=== PATIENT | female | born 1955 | race Caucasian/White ===

== ENCOUNTER → 2016-07-07 | Outpatient (CLI) | payer OTHER ==
--- NOTE | 2016-07-07 14:26 | MA ---
Screening Digital Mammogram with Digital Breast Tomosynthesis Clinical Indications: Routine screening. Previous history of breast cancer on the right. The patient has had 2 lumpectomies and radiation treatment on the right. Technique: Standard cephalocaudal projections are obtained. Digital breast tomosynthesis was perform ed in the MLO projection with reconstruction at 1.0 mm slice thickness and composite MLO views recons tructed. This examination is processed by the CAD computer aided detection system. Comparison: October 09, 2015; June 16, 2015; December 16, 2014; and studies dating back to February. Breast density: C; The breasts are heterogeneously dense, which may obscure small masses. Findings: CAD was reviewed. There are no new masses, new clusters of microcalcifications, or significant axillary lymphadenopathy . There is architectural distortion lateral right breast from previous lumpectomy. Impression: Benign findings. BI-RADS 2. Recommendation: Routine screening mammogram is recommended in one year. Dense mammographic pattern limits the sensitivity of mammography in this patient. If there is a clini adry palpable abnormality, recommend additional imaging with ultrasound if clinically indicated. [facility] will send a result letter to the patient. Negative mammography should not preclude additional workup of a clinically suspicious finding. The patient's information is entered into a reminder system with a target due date for her next mammo gram.
== END ==
LOC: FIMAGING 13:41
DX: Z12.31 Encounter for screening mammogram for malignant neoplasm of breast (principal); Z85.3 Personal history of malignant neoplasm of breast
CPT/HCPCS: G0202

== ENCOUNTER → 2017-06-07 | Outpatient (CLI) | payer OTHER | LOC: FIMAGING 14:56 | PROVIDERS: ATTEND Internal Medicine Hematology & Oncology | DX: N63.10 Unspecified lump in the right breast, unspecified quadrant (principal); Z85.3 Personal history of malignant neoplasm of breast | CPT/HCPCS: G0206 ==

== ENCOUNTER → 2017-08-14 | Outpatient (CLI) | payer OTHER | LOC: FIMAGING 08:10 | PROVIDERS: ATTEND Internal Medicine Hematology & Oncology | DX: Z12.31 Encounter for screening mammogram for malignant neoplasm of breast (principal); Z85.3 Personal history of malignant neoplasm of breast ==

== ENCOUNTER → 2017-08-25 | Outpatient (CLI) | payer OTHER | LOC: FIMAGING 09:39 | PROVIDERS: ATTEND Internal Medicine Hematology & Oncology | DX: R92.8 Other abnormal and inconclusive findings on diagnostic imaging of breast (principal) ==

== ENCOUNTER → 2017-10-13 | Outpatient (CLI) | payer OTHER | LOC: BMCIMAGING 09:13 | PROVIDERS: ATTEND Family Medicine Sports Medicine | DX: M81.0 Age-related osteoporosis without current pathological fracture (principal); Z78.0 Asymptomatic menopausal state; Z85.3 Personal history of malignant neoplasm of breast ==

== ENCOUNTER → 2018-06-20 | Outpatient (CLI) | payer OTHER | LOC: FIMAGING 14:19 | PROVIDERS: ATTEND Internal Medicine Hematology & Oncology | DX: R92.8 Other abnormal and inconclusive findings on diagnostic imaging of breast (principal); Z85.3 Personal history of malignant neoplasm of breast ==

== ENCOUNTER → 2018-06-25 | Outpatient (CLI) | payer OTHER ==
[~2018-06-25] MED LIST: GADOBUTROL 10 ML VIAL IVP ONE
== END ==
LOC: FIMAGING 09:29
PROVIDERS: ATTEND Internal Medicine Hematology & Oncology
DX: N63.13 Unspecified lump in the right breast, lower outer quadrant (principal); Z85.3 Personal history of malignant neoplasm of breast
CPT/HCPCS: A9585; C8908

== ENCOUNTER 2018-07-19 07:51 | Outpatient (CLI) | payer OTHER ==
[2018-07-19] MEDS ORDERED: GADOBUTROL 10 ML VIAL IVP ONE (09:02)
[2018-07-19] MEDS ORDERED: MEPERIDINE 25 MG/ML SYR IVP PRN (09:06)
[2018-07-19] MEDS ORDERED: NALOXONE HCL 0.4 MG/ML INJ IVP PRN (09:06)
[2018-07-19] MEDS ORDERED: FLUMAZENIL 0.5 MG/5 ML MDV IVP PRN (09:06)
[2018-07-19] MEDS ORDERED: ONDANSETRON 4 MG/2 ML VIAL IVP ONE (09:06)
[2018-07-19] MEDS ORDERED: fentaNYL 100 MCG/2 ML INJ IVP PRN (09:06)
[2018-07-19] MEDS ORDERED: MIDAZOLAM 2 MG/2 ML VIAL IVP PRN (09:06)
[2018-07-19] MEDS ORDERED: ONDANSETRON 4 MG/2 ML VIAL ONE (09:13)
[2018-07-19] MEDS ORDERED: FLUMAZENIL 0.5 MG/5 ML MDV IVP ONE (09:14)
[2018-07-19] MEDS ORDERED: MIDAZOLAM 2 MG/2 ML VIAL ONE (09:14)
[2018-07-19] MEDS ORDERED: fentaNYL 100 MCG/2 ML INJ ONE ×2 (09:14)
[2018-07-19] MEDS ORDERED: NALOXONE HCL 0.4 MG/ML INJ ONE (09:14)
[2018-07-19] MEDS ORDERED: NS 1,000 ML IV SCH (09:15)
[2018-07-19] MEDS ORDERED: LIDOCAINE 1% 5 ML SDV ONE (09:20)
[2018-07-19] MEDS ORDERED: BUPIVACAINE 0.5% 30 ML SDV ONE (09:20)
[2018-07-19] MEDS ORDERED: NA BICARBONATE 50 MEQ/50 ML VIAL ONE (09:21)
[2018-07-19 12:28] VITALS: BP 95/59
[2018-07-19] MEDS ORDERED: ACETAMINOPHEN 325 MG TAB PO PRN (13:06)
[2018-07-19] MEDS ORDERED: ONDANSETRON 4 MG/2 ML VIAL IVP PRN (13:06)
--- NOTE | 2018-07-19 13:06 | PDPROPOC ---
Sedation Plan of Care Sedation Plan of Care: vital signs stable, mental status noted, patient educated of risks, benefits, alternatives, patient can tolerate sedation ASA Classification: ASA 1 Planned drugs: fentanyl, midazolam Mallampati Score: Class 2 Mallampati Reference Image: Patient passed 3-3-2 rule?: Yes
--- NOTE | 2018-07-19 13:06 | PDGENHP ---
History & Physical Chief Complaint: abnl breast MRI Pertinent Past, Social, Family History: prior hx right breast CA Cardiorespiratory Assessment: RRR, clear
== END 2018-07-19 12:05 | disposition home or self-care (01) ==
LOC: FIMAGING 07:51
PROVIDERS: ATTEND Internal Medicine Hematology & Oncology
PROC: 0HBT3ZX Excision of Right Breast, Percutaneous Approach, Diagnostic (ICD-10-PCS; principal; 2018-07-19)
DX: C50.211 Malignant neoplasm of upper-inner quadrant of right female breast (principal); Z17.0 Estrogen receptor positive status [ER+]
CPT/HCPCS: A9585; J2250; J2310; J2405; J3010

== ENCOUNTER 2018-09-07 06:26 | Day surgery (SDC) | payer OTHER ==
[2018-09-07] MEDS ORDERED: LORazepam 2 MG/ML INJ IVP ONE (06:50)
[2018-09-07] MEDS ORDERED: ceFAZolin 2 GM/DEXTROSE 100 ML IV ONE (06:50)
[2018-09-07] MEDS ORDERED: LR 1,000 ML IV ONE (06:51)
[2018-09-07] MEDS ORDERED: LIDOCAINE 1% 300 MG/30 ML SDV ONE ×2 (07:34→10:17)
[2018-09-07] MEDS ORDERED: CEFAZOLIN 2 GM/DEXTROSE/100 ML BAG IV ONE (10:16)
[2018-09-07] MEDS ORDERED: BUPIVACAINE 0.25% 30 ML SDV ONE (10:18)
--- NOTE | 2018-09-07 10:18 | PDHPUP ---
History & Physical Update H&P update statement: This history and physical update is based on an assessment of the patient which was completed after admission or registration (within 24 hours), but prior to the surgery/procedure. H&P update: H&P reviewed & patient examined, no change in patient's condition since H&P completed (pre-op mammo guided needle loc films reviewed with Dr. Rodriguez)
[2018-09-07] MEDS ORDERED: MIDAZOLAM 2 MG/2 ML VIAL IVP ONE (10:58)
[2018-09-07] MEDS ORDERED: ALBUTEROL 3 ML DEYVIAL IH PRN (10:59)
[2018-09-07] MEDS ORDERED: ONDANSETRON 4 MG/2 ML VIAL IVP PRN (10:59)
[2018-09-07] MEDS ORDERED: LR 500 ML IV PRN (10:59)
[2018-09-07] MEDS ORDERED: NS 500 ML IV PRN (10:59)
[2018-09-07] MEDS ORDERED: HYDROmorphONE/DILAUDID 2 MG/ML INJ IVP PRN (10:59)
[2018-09-07] MEDS ORDERED: NALOXONE HCL 0.4 MG/ML INJ IVP PRN (10:59)
[2018-09-07] MEDS ORDERED: fentaNYL 100 MCG/2 ML INJ IVP PRN (10:59)
--- NOTE | 2018-09-07 10:59 | PDANEPAE ---
ANE History of Present Illness here for exc breast biopsy ANE Past Medical History - Cardiovascular History Hx Hypertension: No Hx Arrhythmias: No Hx Chest Pain: No Hx Coronary Artery / Peripheral Vascular Disease: No Hx CHF / Valvular Disease: No Hx Palpitations: No - Pulmonary History Hx COPD: No Hx Asthma/Reactive Airway Disease: No Hx Recent Upper Respiratory Infection: No Hx Oxygen in Use at Home: No Hx Sleep Apnea: No Sleep Apnea Screening Result - Last Documented: Negative - Neurologic History Hx Cerebrovascular Accident: No Hx Seizures: No Hx Dementia: No - Endocrine History Hx Diabetes: No - Renal History Hx Renal Disorders: No - Liver History Hx Hepatic Disorders: No - Neurological & Psychiatric Hx Hx Neurological and Psychiatric Disorders: Yes Neurological / Psychiatric History Comment: mild depression - Cancer History Hx Cancer: Yes Cancer History Comment: Breast CA. 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 borderline osteopenia - Chronic Pain History Chronic Pain: No - Surgical History Prior Surgeries: 11/2017 right acl replacement. knee scopes. 2014 lumpectomy x2. . partial hysterectomy 1994. appy 1968 ANE Review of Systems Review of systems is: negative Review of Systems: - Exercise capacity Exercise capacity: >=4 METS METS (RN): 5 METS ANE Patient History - Allergies Allergies/Adverse Reactions: No Known Allergies Allergy (Verified 09/04/18 11:32) - Home Medications Home medications: home medication list seen and reviewed Home Medications: Tamoxifen Citrate 07/11/18 [Last Taken 09/06/18] Herbals/Supplements -Info Only 09/04/18 [Last Taken 09/04/18] Potassium Chloride 09/04/18 [Last Taken 09/06/18] - NPO status NPO Status: no food or drink >8 hours NPO Since - Liquids (Date): 09/07/18 NPO Since - Liquids (Time): 05:05 NPO Since - Solids (Date): 09/06/18 NPO Since - Solids (Time): 22:00 - Smoking Hx Smoking Status: Never smoked - Family Anes Hx Family Hx Anesthesia Complications: none ANE Labs/Vital Signs - Vital Signs Vital Signs: reviewed preoperatively; see RN documention for details Blood Pressure: 101/44 Heart Rate: 53 Respiratory Rate: 16 O2 Sat (%): 96 Height: 170.18 cm Weight: 63.503 kg ANE Physical Exam - Airway Neck exam: FROM Mallampati Score: Class 1 Mouth exam: normal dental/mouth exam - Pulmonary Pulmonary: no respiratory distress - Cardiovascular Cardiovascular: regular rate and rhythym - ASA Status ASA Status: II ANE Anesthesia Plan Anesthesia Plan: GA with mask
[2018-09-07] MEDS ORDERED: MIDAZOLAM 2 MG/2 ML VIAL ONE ×2 (11:01→11:03)
[2018-09-07] MEDS ORDERED: PROPOFOL/EMULSION 500 MG/50 ML BOTTLE IV ONE (11:08)
[2018-09-07] MEDS ORDERED: fentaNYL 100 MCG/2 ML INJ ONE (11:10)
[2018-09-07] MEDS ORDERED: ONDANSETRON 4 MG/2 ML VIAL ONE (11:14)
[2018-09-07] MEDS ORDERED: ePHEDrine SULFATE 25 MG/5 ML SYR ONE (11:26)
[2018-09-07] MEDS ORDERED: PHENYLEPHRINE HCL 100 MCG/ML SYR ONE (11:36)
[2018-09-07] MEDS ORDERED: AVITENE POWDER 1 GM JAR TP ONE (11:52)
--- NOTE | 2018-09-07 12:10 | POSTOPPROG ---
Post Op Note Date of Operation: 09/07/18 Surgeon: Kelvin Ferrara (, FACS) Anesthesiologist: Deon Naidu MD Anesthesia: LMA Pre-op Diagnosis: DCIS right breast Post-op Diagnosis: same Procedure: right partial mastectomy/immediate recon with adjacent tissue transfer Findings: additional medial margin Inf/Abcess present in the surg proc area at time of surgery?: No Bowel Protocol: N/A Clean Closure Performed: N/A Specimen(s): right partial mastectomy + additional medial margin
[2018-09-07] MEDS ORDERED: HYDROCODONE/APAP 5/325 TAB PO PRN (12:11)
[2018-09-07] MEDS ORDERED: ONDANSETRON DISINTEGRATING 4 MG TAB PO PRN (12:11)
[2018-09-07] MEDS ORDERED: DEXAMETHASONE 10 MG/ML VIAL ONE (12:36)
[2018-09-07] MEDS ORDERED: SCOPOLAMINE HYDROBROMIDE 1 MG/3 DAYS PATCH TD ONE (12:36)
--- NOTE | 2018-09-07 13:03 | POSTANESTH ---
Post Anesthetic Evaluation Cardiovascular Status: Normal, Stable Respiratory Status: Normal, Stable Level of Consciousness/Mental Status: Can Participate in Eval Pain Control: Adequate, Prn Tx Ordered Nausea/Vomiting Control: Adequate, Prn Tx Ordered Complications Possibly Related to Anesthesia: None Noted
--- NOTE | 2018-09-07 14:19 | GOP ---
[f rep st] OPERATIVE REPORT DATE OF OPERATION: 09/07/2018 SURGEON: Kelvin Ferrara MD, FACS ANESTHESIA: General by laryngeal mask. ANESTHESIOLOGIST: Deon Naidu MD PREOPERATIVE DIAGNOSIS: Right breast ductal carcinoma in situ. POSTOPERATIVE DIAGNOSIS: Right breast ductal carcinoma in situ. PROCEDURE PERFORMED: 1. Right partial mastectomy with preoperative mammogram-guided needle localization. 2. Immediate reconstruction with adjacent tissue transfer. FINDINGS: Benign-appearing fibrocystic tissue, prior hematoma cavity adjacent to the clip and wire closest to the medial wall of the lumpectomy with additional medial margin submitted for permanent section. SPECIMENS: Mammogram showing the clip within the specimen. ESTIMATED BLOOD LOSS: 10 cc. DESCRIPTION OF PROCEDURE: After informed consent was obtained, the patient was brought to the operating room and placed under general anesthesia. The right breast was prepped and draped in usual fashion. Before proceeding, a time-out and identification of the patient was performed. Patient had undergone preoperative mammogram-guided needle localization by Dr. Ravi Rodriguez, had a wire exiting the breast at the 1 o'clock position directed inferiorly and deep. The skin at the areolar border was marked with a marking pen, infiltrated with 1% lidocaine and the deep breast tissues around the shaft and tip of the wire were infiltrated with 0.25% Marcaine. A circumareolar incision was made and dissection carried in the subcutaneous plane cephalad intercepting the wire in the subcutaneous plane. The breast tissue around the shaft and tip of the wire was then widely excised into the retromammary fat plane. The specimen was removed from the field. Hemostasis was secured with cautery. The specimen was noted to have a small cavity along the medial aspect, and the clip was located within the cavity as was the wire. This was sutured to prevent migration with interrupted 3-0 Monocryl suture. The specimen was then tagged for orientation with a margin-marker kit, separately designating the superior, inferior, medial, lateral, anterior, and posterior margins. An additional medial margin was excised to a depth of approximately 8-10 mm and marked in a similar fashion for the final medial margin. Specimens were submitted for specimen mammograms and permanent section. Hemostasis appeared secure within the cavity. The breast tissue cephalad and inferior to the cavity was mobilized in the subcutaneous plane approximately 8-10 mm deep to the skin using cautery. The resultant breast tissue flaps were used to cantilever over the defect. The cavity was filled with Avitene (micro fibular collagen) and the adjacent breast flaps secured with interrupted 3-0 Monocryl suture. Subcutaneous tissues were then approximated with 3-0 Monocryl suture. Skin was closed with 4-0 Monocryl suture in a subcuticular fashion. Dermabond was applied. Patient was returned extubated to the recovery room in satisfactory condition. Needle, sponge, and instrument counts were correct. COMPLICATIONS: None. /[id number]/MODL MTDD
[2018-09-07 14:26] VITALS: BP 96/49
== END 2018-09-07 14:04 | disposition home or self-care (01) ==
LOC: FIMAGING 06:26
PROVIDERS: ATTEND Surgery
PROC: 0H0T07Z Alteration of Right Breast with Autologous Tissue Substitute, Open Approach (ICD-10-PCS; principal; 2018-09-07 10:45)
PROC: 0HBT0ZZ Excision of Right Breast, Open Approach (ICD-10-PCS; principal; 2018-09-07 10:45)
PROC: BH00ZZZ Plain Radiography of Right Breast (ICD-10-PCS; principal; 2018-09-07 10:45)
DX: D05.11 Intraductal carcinoma in situ of right breast (principal); Z17.0 Estrogen receptor positive status [ER+]; F32.9 Major depressive disorder, single episode, unspecified; Z85.828 Personal history of other malignant neoplasm of skin
CPT/HCPCS: J0690; J1100; J2060; J2250; J2370; J2405; J2704; J3010